=== PATIENT | male | born 1960 | race Caucasian/White ===

== ENCOUNTER 2017-07-17 11:18 | Day surgery (SDC) | payer BC ==
[2017-07-14 14:22] VITALS: BMI 34.2
--- NOTE | 2017-07-17 09:23 | HP ---
History & Physical Update - History History: No Change - Physical Physical: No Change - Assessment Assessment: No Change - Plan Plan: No Change
[~2017-07-17 11:18] MED LIST: CEFAZOLIN 2 GM in DEXTROSE 5%-WATER - 100 ML IVPB ONE; oxyCODONE HCL 10 MG SUSTAINED ACTING TABLET PO STA
[2017-07-17] MEDS ORDERED: oxyCODONE HCL 10 MG SUSTAINED ACTING TABLET ONE (11:57)
[2017-07-17] MEDS ORDERED: LIDOCAINE 1%/EPI 1:100000 (20 ML MULTI DOSE VIAL) ONE (15:57)
[2017-07-17] MEDS ORDERED: BUPIVACAINE HCL/PF 2.5 MG/ML - 30 ML VIAL IJ ONE (15:57)
[2017-07-17] MEDS ORDERED: methylPREDNISolone ACET (DEPO) 40 MG/1 ML VIAL ONE (15:57)
[2017-07-17] MEDS ORDERED: THROMBIN (BOVINE) 5,000 UNIT VIAL TP ONE (15:57)
[2017-07-17] MEDS ORDERED: BUPIVACAINE HCL/PF 0.5% (5MG/ML) 10 ML VIAL ONE (16:33)
[2017-07-17] MEDS ORDERED: MIDAZOLAM HCL 2 MG/2 ML SINGLE DOSE VIAL ONE ×3 (16:35)
[2017-07-17] MEDS ORDERED: DEXAMETHASONE SOD PHOSPHATE 4 MG/1 ML VIAL ONE (16:55)
[2017-07-17] MEDS ORDERED: ONDANSETRON 4 MG/2 ML VIAL ONE (16:55)
[2017-07-17] MEDS ORDERED: ceFAZolin SODIUM 1 GM VIAL ONE (16:55)
[2017-07-17] MEDS ORDERED: ePHEDrine SULFATE 50 MG/1 ML AMPULE ONE (17:09)
--- NOTE | 2017-07-17 18:32 | OP ---
Operative Note - Note: Operative Date: 07/17/17 Pre-Operative Diagnosis: spinal stenosis Operation: L2-L3 laminectomy Surgeon: Chance Rutherford Feed Preparation Operator: Suzan Ceballos Anesthesiologist/HIGH SCHOOL BUSINESS TEACHER: Zbigniew Gregory Anesthesia: Spinal Estimated Blood Loss (mls): 30 Fluid Volume Replaced (mls): 400 Operative Report Dictated: Yes
--- NOTE | 2017-07-17 18:33 | SURG ---
Surgery Scorekeeper Note Scorekeeper: Suzan Ceballos PA-C Date of Service: 07/17/17 Diagnosis: spinal stenosis Procedure: L2-L3 laminectomy I was present for the entirety of the operative procedure. For further detail, please refer to operative report. Visit type - Case Type Case Type: Scheduled Admission - New patient This patient is new to me today: Yes Date on this admission: 07/17/17 - Critical Care Critical Care patient: No
[2017-07-17] MEDS ORDERED: oxyCODONE HCL 5 MG TABLET PO PRN (18:38)
[2017-07-17] MEDS ORDERED: PROMETHAZINE HCL 25 MG/1 ML VIAL IVPUSH PRN (18:38)
[2017-07-17] MEDS ORDERED: ONDANSETRON 4 MG/2 ML VIAL IVPUSH PRN (18:38)
[2017-07-17 19:45] VITALS: TEMP 98.1
[2017-07-17 21:41] VITALS: BP 133/86; PULSE 82
--- NOTE | 2017-07-18 08:22 | OP ---
DATE OF OPERATION: 07/17/2017 PREOPERATIVE DIAGNOSIS: Spinal stenosis L2-3, L3-4. POSTOPERATIVE DIAGNOSIS: Spinal stenosis L2-3, L3-4. PROCEDURE PERFORMED: Laminectomy L2-3, revision laminectomy L3-4. SURGEON: Chance Rutherford MD TOURIST ADVISER: JASON Caceres ESTIMATED BLOOD LOSS: 50 mL. INTRAVENOUS FLUIDS: Per Anesthesia. ANESTHESIA: Spinal. COMPLICATIONS: None. DISPOSITION: Patient brought to PACU in stable condition. INDICATION FOR SURGERY: The patient is a 56-year-old gentleman who has been suffering from pain from his back down his leg. X-rays and MRI were completed which noted that he had spinal stenosis at L2-3 and L3-4. He had gone through an exhaustive course of treatment for this which included medications, physical therapy, as well as injections. Unfortunately, his pain continued to persist despite all this. At this point risks, benefits, and alternatives were discussed, and the patient consented to surgery. OPERATIVE NOTE: The patient was brought to the operating room by the anesthesia staff. After appropriate patient identification was performed, spinal anesthesia was given. Patient was placed prone onto the OR table with all areas of bony prominences well padded. At this time 2 needles were placed in his back to sayra off the L2 and L5 segments. X-ray was taken to confirm this was correct. Needle was removed and 10 mL of lidocaine with epinephrine was injected in his back. At this time his back was prepped and draped in sterile manner. At this point a timeout was completed. An incision was made from L2 down to L4. Dissection was carried down to the fascia. The fascia was split at this time. A spinal needle was placed onto the L2 lamina to sayra off the L2-3 level. An x-ray was taken to confirm this was correct. Needle was removed. At this time the microscope was brought in. At this point a portion of the L2 spinous process was removed. Portion of the previous scar tissue was removed. A decompression was performed at the L2-3 level. Scar tissue was noted. Scar tissue was peeled, and a decompression was performed at L3-4. By the end of the procedure the nerve roots on the right-hand side appeared to be well decompressed. All bleeding was well controlled at this time. Steroid was placed over the nerve root. FloSeal was placed over that. The fascia was closed with No. 1 Vicryl suture. Subcutaneous tissue was closed with 2-0 Vicryl sutures. Skin was closed with 3-0 Monocryl sutures. Dermabond was applied, Steri-Strips were applied, a sterile dressing was applied. Patient was placed supine on the OR bed and brought to the PACU in stable condition. Linda [id number]
== END 2017-07-17 21:45 | disposition home or self-care (01) ==
LOC: FASU 11:18
PROVIDERS: ATTEND Orthopaedic Surgery Orthopaedic Surgery of the Spine
PROC: 01NB0ZZ Release Lumbar Nerve, Open Approach (ICD-10-PCS; principal; 2017-07-17 17:13)
DX: M48.06 Spinal stenosis, lumbar region (principal)
CPT/HCPCS: 72100-TC; 76000-TC; 94760

== ENCOUNTER 2017-07-27 11:39 | Inpatient (IN) | payer BC ==
[2017-07-27] MEDS: SODIUM CHLORIDE 1,000 ML IV SCH (12:19)
[2017-07-27 12:35] LABS: BASOPHIL 1.2 % (0-2.0); EOSINOPHIL 1.9 % (0-4.5); MCH 29.3 pg (25.7-33.7); MCHC 33.9 g/dl (32.0-35.9); MEAN CELL VOLUME 86.5 fl (80-96); NEUTROPHILS 57.6 % (42.8-82.8); PLATELET COUNT 393 K/MM3 (134-434); RDW 13.3 % (11.9-15.9)
[2017-07-27 12:49] LABS: ACTIVATED PTT 30.7 SECONDS (24.0-38.9)
[2017-07-27 12:51] LABS: ALBUMIN 4.1 g/dl (3.5-5.0); ALK PHOS 57 U/L (32-92); ANION GAP 7 (8-16); BILIRUBIN,TOTAL 0.4 mg/dl (0.2-1.0); CALCIUM 9.4 mg/dl (8.4-10.2); CO2 23 mmol/L (22-28); CREATININE 0.6 mg/dl (0.6-1.3); GLUCOSE,RANDOM 95 mg/dl (74-106); SGOT/AST 19 U/L (10-42); SGPT/ALT 26 U/L (10-40); TOT PROT 6.9 g/dl (6.4-8.3)
[2017-07-27 12:54] LABS: INR 1.01 (0.82-1.09); PROTHROMBIN TIME (PATIENT) 11.3 SEC (10.2-13.0)
--- NOTE | 2017-07-27 13:10 | PDOC ---
History of Present Illness <Riaz Monteroian - Last Filed: 07/27/17 16:08> - General History Source: Patient Exam Limitations: No Limitations - History of Present Illness Initial Comments: 07/27/17 13:19 56 y/o male c/ hx of L2-L4 spinal stenosis s/p L2-L3 laminentomy 07/17 p/w draining from surgical site on back for ~1 week. Noted a purulent discharge from the back. Denies pain or fevers. Denies numbness, weakness, tingling. Was persistently draining, so came into the ED. <Patrick Ordaz - Last Filed: 07/27/17 17:26> - General Chief Complaint: Revisit,Wound Recheck Stated Complaint: drainage from operative site at back Time Seen by Provider: 07/27/17 11:44 Past History <Riaz Monteroian - Last Filed: 07/27/17 16:08> - Past Medical History Anemia: No Asthma: No Cancer: No Cardiac Disorders: No CVA: No COPD: No CHF: No Dementia: No Diabetes: No GI Disorders: No Disorders: No HTN: No Hypercholesterolemia: No Liver Disease: No Seizures: No Thyroid Disease: No - Surgical History Abdominal Surgery: No Appendectomy: No Cardiac Surgery: No Cholecystectomy: No Lung Surgery: No Neurologic Surgery: No Orthopedic Surgery: Yes (LAMINECTOMY- 2010) - Suicide/Smoking/Psychosocial Hx Smoking History: Current every day smoker Have you smoked in the past 12 months: Yes Number of Cigarettes Smoked Daily: 10 Information on smoking cessation initiated: Yes 'Breaking Loose' booklet given: 07/27/17 Hx Alcohol Use: No Drug/Substance Use Hx: No Substance Use Type: None Hx Substance Use Treatment: No <Patrick Ordaz - Last Filed: 07/27/17 17:26> - Past Medical History Allergies/Adverse Reactions: Allergies Allergy/AdvReac Type Severity Reaction Status Date / Time No Known Allergies Allergy Verified 07/27/17 11:41 Home Medications: Ambulatory Orders NK [No Known Home Medication] 07/27/17 Review of Systems - Review of Systems Able to Perform ROS?: Yes Comments:: 07/27/17 13:20 GENERAL/CONSTITUTIONAL: No fever, weakness. HEAD, EYES, EARS, NOSE AND THROAT: No change in vision. No ear pain or discharge. No sore throat. CARDIOVASCULAR: No chest pain or shortness of breath. RESPIRATORY: No cough, wheezing, or hemoptysis. GASTROINTESTINAL: No abdominal pain, nausea, vomiting, diarrhea, or decreased PO intolerance. GENITOURINARY: No dysuria, frequency, or change in urination. MUSCULOSKELETAL: No joint or muscle swelling or pain. No neck or back pain. SKIN: Drainage from the surgical site on back NEUROLOGIC: No headache, vertigo, loss of consciousness, or change in strength/ sensation. ENDOCRINE: No increased thirst. No abnormal weight change. HEMATOLOGIC/LYMPHATIC: No anemia, easy bleeding, or history of blood clots. ALLERGIC/IMMUNOLOGIC: No hives or skin allergy. <Patrick Ordaz - Last Filed: 07/27/17 17:26> *Physical Exam - Vital Signs Last Vital Signs Temp Pulse Resp BP Pulse Ox 99 F 58 L 16 139/98 95 07/27/17 11:40 07/27/17 11:40 07/27/17 11:40 07/27/17 12:19 07/27/17 11:40 <Seamus Montero - Last Filed: 07/27/17 16:08> - Vital Signs Last Vital Signs Temp Pulse Resp BP Pulse Ox 99 F 58 L 16 139/98 95 07/27/17 11:40 07/27/17 11:40 07/27/17 11:40 07/27/17 12:19 07/27/17 11:40 - Physical Exam Comments: 07/27/17 13:24 GENERAL: Awake, alert, and fully oriented, in no acute distress. HEAD: No signs of trauma EYES: PERRLA, EOMI, sclera anicteric, conjunctiva clear ENT: Auricles normal inspection, hearing grossly normal, nares patent, oropharynx clear without exudates. NECK: Normal ROM, supple, no lymphadenopathy, JVD, or masses LUNGS: Breath sounds equal, clear to auscultation bilaterally. No wheezes, and no crackles HEART: Regular rate and rhythm, normal S1 and S2, no murmurs, rubs or gallops ABDOMEN: Soft, nontender, normoactive bowel sounds. No guarding, no rebound. No masses EXTREMITIES: Normal range of motion, no edema. No clubbing or cyanosis. No cords, erythema, or tenderness NEUROLOGICAL: Cranial nerves II through XII grossly intact. Normal speech, normal gait SKIN: Surgical scar overlying the L2-L4 site with purulent drainage. No erythema appreciated. <Patrick Ordaz - Last Filed: 07/27/17 17:26> Heart Score/ECG Review #1 ECG reviewed & interpreted by me at: 12:15 07/27/17 13:24 NSR 67, no std/tomas, normal axis, normal intervals, QTC 401 msec <Patrick Ordaz - Last Filed: 07/27/17 17:26> ED Treatment Course - LABORATORY CBC & Chemistry Diagram: 07/27/17 12:00 07/27/17 12:00 - ADDITIONAL ORDERS Additional order review: Laboratory Results 07/27/17 07/27/17 07/27/17 12:00 12:00 12:00 PT with INR 11.3 INR 1.01 PTT (Actin FS) 30.7 Sodium 135 L Potassium 4.0 Chloride 105 Carbon Dioxide 23 Anion Gap 7 L BUN 13 Creatinine 0.6 Creat Clearance w eGFR > 60 Random Glucose 95 Lactic Acid 1.8 Calcium 9.4 Total Bilirubin 0.4 AST 19 ALT 26 Alkaline Phosphatase 57 Total Protein 6.9 Albumin 4.1 Urine Color Urine Appearance Urine pH Ur Specific [place] Urine Protein Urine Glucose (UA) Urine Ketones Urine Blood Urine Nitrite Urine Bilirubin Urine Urobilinogen Urine RBC Urine WBC Ur Epithelial Cells Urine Bacteria 07/27/17 01:20 PT with INR INR PTT (Actin FS) Sodium Potassium Chloride Carbon Dioxide Anion Gap BUN Creatinine Creat Clearance w eGFR Random Glucose Lactic Acid Calcium Total Bilirubin AST ALT Alkaline Phosphatase Total Protein Albumin Urine Color Yellow Urine Appearance Cloudy Urine pH 7.0 Ur Specific [place] 1.015 Urine Protein Negative Urine Glucose (UA) Negative Urine Ketones Negative Urine Blood Trace-intact H Urine Nitrite Negative Urine Bilirubin Negative Urine Urobilinogen 0.2 Urine RBC 0-3 Urine WBC 0-3 Ur Epithelial Cells Moderate Urine Bacteria Few 07/27/17 12:00 Gram Stain - Final Back 07/27/17 12:00 RBC 5.14 MCV 86.5 MCHC 33.9 RDW 13.3 MPV 8.0 Neutrophils % 57.6 Lymphocytes % 33.1 Monocytes % 6.2 Eosinophils % 1.9 Basophils % 1.2 <Seamus Montero - Last Filed: 07/27/17 16:08> - LABORATORY CBC & Chemistry Diagram: 07/27/17 12:00 07/27/17 12:00 - ADDITIONAL ORDERS Additional order review: Laboratory Results 07/27/17 07/27/17 12:00 12:00 PT with INR 11.3 INR 1.01 PTT (Actin FS) 30.7 Sodium 135 L Potassium 4.0 Chloride 105 Carbon Dioxide 23 Anion Gap 7 L BUN 13 Creatinine 0.6 Creat Clearance w eGFR > 60 Random Glucose 95 Calcium 9.4 Total Bilirubin 0.4 AST 19 ALT 26 Alkaline Phosphatase 57 Total Protein 6.9 Albumin 4.1 07/27/17 12:00 RBC 5.14 MCV 86.5 MCHC 33.9 RDW 13.3 MPV 8.0 Neutrophils % 57.6 Lymphocytes % 33.1 Monocytes % 6.2 Eosinophils % 1.9 Basophils % 1.2 - RADIOLOGY Radiology Studies Ordered: Category Date Time Status LUMBAR SPINE CT WITH CONTRAST [CT] Stat CT Scan 07/27/17 11:52 Ordered <Patrick Ordaz - Last Filed: 07/27/17 17:26> Medical Decision Making - Medical Decision Making 07/27/17 15:[address] Rutherford at 3:17 pm. 07/27/17 3:31 pm Page returned by PA on behalf of Dr. Rutherford at 3:31 pm. <Seamus Montero - Last Filed: 07/27/17 16:08> - Medical Decision Making 07/27/17 13:25 Vital Signs Temp Pulse Resp BP Pulse Ox 99 F 58 L 16 139/98 95 07/27/17 11:40 07/27/17 11:40 07/27/17 11:40 07/27/17 12:19 07/27/17 11:40 Findings are concerning for infected surgical site. Adult sepsis protocol initiated. CT lumbar spine with IV contrast to evaluate for abscess. IV antibiotics. 07/27/17 17:25 CBC, BMP 07/27/17 12:00 07/27/17 12:00 CMP Sodium 135 mmol/L (136-145) L 07/27/17 12:00 Potassium 4.0 mmol/L (3.5-5.1) 07/27/17 12:00 Chloride 105 mmol/L (98-107) 07/27/17 12:00 Carbon Dioxide 23 mmol/L (22-28) 07/27/17 12:00 Anion Gap 7 (8-16) L 07/27/17 12:00 BUN 13 mg/dl (7-18) 07/27/17 12:00 Creatinine 0.6 mg/dl (0.6-1.3) 07/27/17 12:00 Creat Clearance w eGFR > 60 (>60) 07/27/17 12:00 Random Glucose 95 mg/dl (74-106) 07/27/17 12:00 Lactic Acid 1.8 mmol/L (0.4-2.0) 07/27/17 12:00 Calcium 9.4 mg/dl (8.4-10.2) 07/27/17 12:00 Total Bilirubin 0.4 mg/dl (0.2-1.0) 07/27/17 12:00 AST 19 U/L (10-42) 07/27/17 12:00 ALT 26 U/L (10-40) 07/27/17 12:00 Alkaline Phosphatase 57 U/L (32-92) 07/27/17 12:00 Total Protein 6.9 g/dl (6.4-8.3) 07/27/17 12:00 Albumin 4.1 g/dl (3.5-5.0) 07/27/17 12:00 Urine Test Results Urine Color Yellow 07/27/17 01:20 Urine Appearance Cloudy 07/27/17 01:20 Urine pH 7.0 (4.5-8) 07/27/17 01:20 Ur Specific [place] 1.015 (1.005-1.025) 07/27/17 01:20 Urine Protein Negative (NEGATIVE) 07/27/17 01:20 Urine Glucose (UA) Negative (NEGATIVE) 07/27/17 01:20 Urine Ketones Negative (NEGATIVE) 07/27/17 01:20 Urine Blood Trace-intact (NEGATIVE) H 07/27/17 01:20 Urine Nitrite Negative (NEGATIVE) 07/27/17 01:20 Urine Bilirubin Negative (NEGATIVE) 07/27/17 01:20 Urine RBC 0-3 /hpf (0-3) 07/27/17 01:20 Urine WBC 0-3 (3-5) 07/27/17 01:20 Ur Epithelial Cells Moderate /HPF 07/27/17 01:20 Urine Bacteria Few /hpf (NEGATIVE) 07/27/17 01:20 CT spine reviewed. No abscess but findings consistent with skin infection. Vanc and ceftriaxone ordered. Case discussed with JASON Lora from DR. Rutherford's service. She agrees with plan and requests [facility] service. Case discussed with [facility] hospitalist. Case admitted under med/surg admission. Case discussed in detail with admitting physician including history, physical exam and ancillary studies. Admitting physician has assumed care for the patient, will follow all pending diagnostics and will complete the evaluation and treatment. <Patrick Ordaz - Last Filed: 07/27/17 17:26> *DC/Admit/Observation/Transfer - Attestations Scribe Attestion: 07/27/17 15:17 Documentation prepared by Seamus Montero, acting as biomedical engineering aide for Patrick Ordaz MD. <Seamus Montero - Last Filed: 07/27/17 16:08> - Discharge Dispostion Admit: Yes <Patrick Ordaz - Last Filed: 07/27/17 17:26> Diagnosis at time of Disposition: Postoperative infection Qualifiers: Encounter type: initial encounter Qualified Code(s): T81.4XXA - Infection following a procedure, initial encounter - Discharge Dispostion Condition at time of disposition: Fair - Referrals - Patient Instructions Printed Discharge Instructions: Smoking Cessation - Post Discharge Activity
[2017-07-27 13:37] LABS: URINE BILIRUBIN Negative (NEGATIVE); URINE GLUCOSE (UA) Negative (NEGATIVE); URINE KETONE Negative (NEGATIVE); URINE LEUK ESTERASE Negative (NEGATIVE); URINE NITRITE Negative (NEGATIVE); URINE PROTEIN Negative (NEGATIVE); URINE UROBILINOGEN 0.2 (0.2-1.0)
[2017-07-27 13:38] LABS: URINE APPEARANCE CLOUDY; URINE BLOOD Trace-intact (NEGATIVE); URINE COLOR YELLOW
[2017-07-27 13:46] LABS: URINE RBC 0-3 /hpf (0-3); URINE WBC 0-3 (3-5)
[2017-07-27 13:47] LABS: URINE BACTERIA FEW /hpf (NEGATIVE)
[2017-07-27] MEDS ORDERED: CEFTRIAXONE 1 GM in DEXTROSE 5%-WATER - 50 ML IVPB ONE (15:07)
[2017-07-27] MEDS ORDERED: cefTRIAXone SODIUM 1 GM VIAL ONE (15:11)
[2017-07-27] MEDS ORDERED: VANCOMYCIN 1,000 MG VIAL (RESTRICTED TO ID ONLY) ONE (16:44)
[2017-07-27] MEDS ORDERED: VANCOMYCIN 1,000 MG in DEXTROSE 5%-WATER - 250 ML IVPB ONE (16:44)
[2017-07-27] MEDS ORDERED: morphine CARPU-JECT 4 MG/1 ML DISP.SYRIN IVPUSH PRN (17:28)
[2017-07-27] MEDS ORDERED: HEPARIN NA (PORCINE) 5,000 UNITS/ML 1ML VIAL SQ SCH (18:00)
[2017-07-27 18:38] VITALS: BMI 35.1
--- NOTE | 2017-07-27 19:10 | HP ---
CHIEF COMPLAINT: Drainage from surgical site PCP: Dr. Chacon ([facility]) HISTORY OF PRESENT ILLNESS: This is a 56 year old male with a history of severe spinal stenosis who underwent L2-[address] Rutherford in this facility on 07/17. He has been noticing drainage at the surgical site several days later, and followed up in the office at that time. Since then, the drainage has worsened. He describes it as yellow and constant. He and presented to the ED for evaluation today. He denies fevers/chills, lower extremity weakness, numbness or tingling, or any other symptoms. ER course was notable for: (1) WBC 10.0, afebrile (2) CT spine: no evidence of drainable collection. Severe spinal stenosis with possible compression of T11 nerve root. (3) Gram stain: No organisms seen Recent Travel: Traveled to [facility] just prior to surgery PAST MEDICAL HISTORY: None PAST SURGICAL HISTORY: L2-3 laminectomy 07/17/17, laminectomy 2009 Social History: Lives with , works as building construction contractor Smokin cigarettes daily Alcohol: Occasional Drugs: None Family History: Non-contributory to this admission Allergies No Known Allergies Allergy (Verified 07/27/17 11:41) HOME MEDICATIONS: Home Medications Medication Instructions Recorded NK [No Known Home Medication] 07/27/17 REVIEW OF SYSTEMS CONSTITUTIONAL: Absent: fever, chills, diaphoresis, generalized weakness, malaise, loss of appetite, weight change HEENT: Absent: rhinorrhea, nasal congestion, throat pain, throat swelling, difficulty swallowing, mouth swelling, ear pain, eye pain, visual changes CARDIOVASCULAR: Absent: chest pain, syncope, palpitations, irregular heart rate, lightheadedness , peripheral edema RESPIRATORY: Absent: cough, shortness of breath, dyspnea with exertion, orthopnea, wheezing, stridor, hemoptysis GASTROINTESTINAL: Absent: abdominal pain, abdominal distension, nausea, vomiting, diarrhea, constipation, melena, hematochezia GENITOURINARY: Absent: dysuria, frequency, urgency, hesitancy, hematuria, flank pain, genital pain MUSCULOSKELETAL: Absent: myalgia, arthralgia, joint swelling, back pain, neck pain SKIN: Drainage from surgical site HEMATOLOGIC/IMMUNOLOGIC: Absent: easy bleeding, easy bruising, lymphadenopathy, frequent infections ENDOCRINE: Absent: unexplained weight gain, unexplained weight loss, heat intolerance, cold intolerance NEUROLOGIC: Absent: headache, focal weakness or paresthesias, dizziness, unsteady gait, seizure, mental status changes, bladder or bowel incontinence PSYCHIATRIC: Absent: anxiety, depression, suicidal or homicidal ideation, hallucinations. PHYSICAL EXAMINATION Vital Signs - 24 hr 07/27/17 07/27/17 17:49 18:19 Temperature 98.6 F 98.2 F Pulse Rate 63 Pulse Rate [ 71 Left Radial] Respiratory 18 18 Rate Blood Pressure 148/77 Blood Pressure 145/88 [Right Arm] O2 Sat by Pulse 98 98 Oximetry (%) GENERAL: Awake, alert, and fully oriented, in no acute distress. HEAD: Normal with no signs of trauma. EYES: Pupils equal, round and reactive to light, extraocular movements intact, sclera anicteric, conjunctiva clear. No lid lag. EARS, NOSE, THROAT: Ears normal, nares patent, oropharynx clear without exudates. Moist mucous membranes. NECK: Normal range of motion, supple without lymphadenopathy, JVD, or masses. LUNGS: Breath sounds equal, clear to auscultation bilaterally. No wheezes, and no crackles. No accessory muscle use. HEART: Regular rate and rhythm, normal S1 and S2 without murmur, rub or gallop. ABDOMEN: Soft, nontender, not distended, normoactive bowel sounds, no guarding, no rebound, no masses. No hepatomegaly or splenomegaly. MUSCULOSKELETAL: Normal range of motion at all joints. No bony deformities or tenderness. No CVA tenderness. UPPER EXTREMITIES: 2+ pulses, warm, well-perfused. No cyanosis. No clubbing. No peripheral edema. LOWER EXTREMITIES: 2+ pulses, warm, well-perfused. No calf tenderness. No peripheral edema. NEUROLOGICAL: Cranial nerves II-XII intact. Normal speech. Normal gait. 5/5 upper and lower extremity strength bilaterally. No saddle anesthesia. PSYCHIATRIC: Cooperative. Good eye contact. Appropriate mood and affect. SKIN: Warm, dry, normal turgor, no rashes or lesions noted, normal capillary refill. Lumbar surgical incision with no drainage on gauze (however dressing was changed recently prior to my evaluation). Mild warmth. No erythema. ASSESSMENT/PLAN: 56 year old male admitted with possible surgical site infection. Problem List - Problem (1) Post-operative infection Assessment/Plan: -Given Ceftriaxone/Vancomycin in ED -Continue weight-based Vancomycin, start Zosyn tomorrow pending ID recommendations -Follow WBC -Follow up blood and wound cultures -Neurosurgical and ID consultations requested Code(s): T81.4XXA - INFECTION FOLLOWING A PROCEDURE, INITIAL ENCOUNTER Qualifiers: Encounter type: initial encounter Qualified Code(s): T81.4XXA - Infection following a procedure, initial encounter (2) Cigarette smoker Assessment/Plan: -Declines NRT Code(s): F17.210 - NICOTINE DEPENDENCE, CIGARETTES, UNCOMPLICATED (3) DVT prophylaxis Assessment/Plan: -Ambulation -SCDs -No chemical ppx pending surgical plan Code(s): [id number] - Visit type - Emergency Visit Emergency Visit: Yes ED Registration Date: 07/27/17 Care time: The patient presented to the Emergency Department on the above date and was hospitalized for further evaluation of their emergent condition. - New Patient This patient is new to me today: Yes Date on this admission: 07/27/17 - Critical Care Critical Care patient: No
[2017-07-27] MEDS ORDERED: VANCOMYCIN 1,000 MG in DEXTROSE 5%-WATER - 250 ML IVPB SCH (22:00)
[2017-07-28] MEDS ORDERED: PIPERACILLIN/TAZOB 4.5 GM/100 ML PRE-DOCKED IVPB ONE (08:00)
[2017-07-28 08:25] LABS: INR 1.06 (0.82-1.09); PROTHROMBIN TIME (PATIENT) 11.9 SEC (10.2-13.0)
[2017-07-28 08:40] LABS: BASOPHIL 0.1 % (0-2.0); EOSINOPHIL 2.9 % (0-4.5); MCH 28.6 pg (25.7-33.7); MCHC 32.2 g/dl (32.0-35.9); MEAN CELL VOLUME 88.8 fl (80-96); MEAN PLT VOLUME 8.4 fl (7.5-11.1); NEUTROPHILS 59.2 % (42.8-82.8); PLATELET COUNT 376 K/MM3 (134-434); RDW 13.3 % (11.9-15.9); WHITE BLOOD COUNT 9.6 K/mm3 (4.0-10.8)
--- NOTE | 2017-07-28 09:04 | PN ---
Progress Note (short form) - Note Progress Note: ID Consult dictated Possible surgical site infection v. seroma S/P L2L3 laminectomy Await c/s Obtain ESR, CRP Empiric vancomycin/ zosyn
[2017-07-28 09:07] LABS: ALK PHOS 63 U/L (32-92); ANION GAP 8 (8-16); BILIRUBIN,TOTAL 0.9 mg/dl (0.2-1.0); CALCIUM 9.7 mg/dl (8.4-10.2); CO2 26 mmol/L (22-28); CREATININE 0.6 mg/dl (0.6-1.3); GLUCOSE,RANDOM 96 mg/dl (74-106); PHOSPHOROUS 3.5 mg/dl (2.5-4.6); SGOT/AST 17 U/L (10-42); SGPT/ALT 26 U/L (10-40)
--- NOTE | 2017-07-28 09:27 | PN ---
Physical Exam: SUBJECTIVE: Patient seen and examined this morning. Pt with wound to laminectomy sight. No events overnight and denies fever or chills. OBJECTIVE: Vital Signs Period Temp Pulse Resp BP Sys/Velazquez Pulse Ox Last 24 Hr 98.1 F-98.6 F 57-71 18-20 116-148/68-88 98-98 GENERAL: The patient is awake, alert, and fully oriented, in no acute distress. HEAD: Normal with no signs of trauma. EYES: PERRL, extraocular movements intact, sclera anicteric, conjunctiva clear. No ptosis. LUNGS: Breath sounds equal, clear to auscultation bilaterally, no wheezes, no crackles, no accessory muscle use. HEART: Regular rate and rhythm, S1, S2 without murmur, rub or gallop. ABDOMEN: Soft, nontender, nondistended, normoactive bowel sounds, no guarding, no rebound, no hepatosplenomegaly, no masses. EXTREMITIES: 2+ pulses, warm, well-perfused, no edema. NEUROLOGICAL: Cranial nerves II through XII grossly intact. Normal speech, gait not observed. PSYCH: Normal mood, normal affect. SKIN: Warm, dry, normal turgor, no rashes or lesions noted. Lumbar region with 2" wound with serous drainage noted. Wound edges approximated and no signs of erythema, pus, or bleeding. Denies any pain. Laboratory Results - last 24 hr 07/28/17 07/28/17 07/28/17 07:33 07:33 07:33 WBC 9.6 RBC 5.01 Hgb 14.3 Hct 44.4 MCV 88.8 MCH 28.6 MCHC 32.2 RDW 13.3 Plt Count 376 MPV 8.4 Neutrophils % 59.2 Lymphocytes % 32.1 Monocytes % 5.7 Eosinophils % 2.9 Basophils % 0.1 PT with INR 11.9 INR 1.06 PTT (Actin FS) 31.0 Sodium 138 Potassium 4.5 Chloride 104 Carbon Dioxide 26 Anion Gap 8 BUN 10 D Creatinine 0.6 Creat Clearance w eGFR > 60 Random Glucose 96 Calcium 9.7 Phosphorus 3.5 Magnesium 2.0 Total Bilirubin 0.9 D AST 17 ALT 26 Alkaline Phosphatase 63 Total Protein 7.0 Albumin 4.0 Active Medications Generic Name Dose Route Start Last Admin Trade Name Freq PRN Reason Stop Dose Admin Sodium Chloride 1,000 mls @ 125 mls/hr 07/27/17 12:00 07/27/17 12:19 Normal Saline - IV 125 mls/hr ASDIR SARAH Administration Vancomycin HCl 250 mls @ 166.667 mls/hr 07/28/17 11:00 Vancomycin (Pre-Docked) IVPB Q12H SARAH Piperacillin Sod/Tazobactam Sod 100 mls @ 200 mls/hr 07/28/17 10:00 Zosyn 4.5gm Ivpb (Pre-Docked) IVPB Q8H-IV SARAH Protocol Morphine Sulfate 4 mg 07/27/17 17:28 Morphine Injection - IVPUSH Q6H PRN PAIN ASSESSMENT/PLAN: This 56 year old male with recent laminectomy on 07/17 who developed serous drainage from his wound site yesterday. He presented to ER and was started on vanco and zosyn. Problem List - Problems (1) Cigarette smoker Assessment/Plan: -cessation of smoking education Code(s): F17.210 - NICOTINE DEPENDENCE, CIGARETTES, UNCOMPLICATED (2) Post-operative infection Assessment/Plan: - Keep the wound clean and dry with daily dressing changes - as per ID switch to keflex for 5 days - will discharge home with follow up with surgeon - added on ESR and CRP for follow up of ID. Code(s): T81.4XXA - INFECTION FOLLOWING A PROCEDURE, INITIAL ENCOUNTER Qualifiers: Encounter type: initial encounter Qualified Code(s): T81.4XXA - Infection following a procedure, initial encounter Visit type - Emergency Visit Emergency Visit: Yes ED Registration Date: 07/27/17 Care time: The patient presented to the Emergency Department on the above date and was hospitalized for further evaluation of their emergent condition. - New Patient This patient is new to me today: Yes Date on this admission: 07/28/17 - Critical Care Critical Care patient: No - Discharge Referral Referred to [facility] No
[2017-07-28] MEDS ORDERED: VANCOMYCIN 1,500 MG in DEXTROSE 5%-WATER - 250 ML IVPB ONE (10:00)
[2017-07-28] MEDS ORDERED: PIPERACILLIN/TAZOB 4.5 GM 100 ML IVPB SCH (10:00)
--- NOTE | 2017-07-28 10:27 | CONS ---
DATE OF CONSULTATION: HISTORY: The patient is a 56-year-old male evaluated for possible surgical site infection. He has a history of spinal stenosis L2, L4. The patient underwent an L2-L3 laminectomy on July 17, 2017. He reports that approximately 2-3 days postoperatively he developed drainage at the surgical site. It was initially described as bloody/serosanguineous and later became serous and yellow in color. It became more copious. He had presented to an urgent care center where he was evaluated. He was seen in follow up by Surgery. He was treated supportively. The patient continued to report drainage from the wound. He presented to the emergency room yesterday and was admitted to the hospital. Cultures were obtained, and he was empirically treated with vancomycin and Zosyn. He denies any pain at the surgical site. He reports that pain and weakness of his lower extremities has improved since the surgery. He denies any fever or chills. A CAT scan of the surgical site was obtained and shows postsurgical changes related to the recent laminectomy at L2-L3 with a confluent soft tissue/fluid in the posterior paraspinal soft tissues from L1-L4 extending into the epidural space and up to the skin surface. No CT evidence of a drainable collection was noted. PAST MEDICAL HISTORY: Negative. ALLERGIES: No known allergies. MEDICATIONS: No home medications. SOCIAL HISTORY: Works as a building serviceman. Positive history of tobacco. Occasional ETOH. Recent travel to [facility]. SYSTEMS REVIEW: Neurologic: No loss of consciousness, seizure activity, focal weakness. Cardiac: Negative chest pain or palpitations. Respiratory: Negative cough or sputum production. Gastrointestinal: Negative vomiting or diarrhea. Genitourinary: Negative for urinary tract infection. LABORATORY DATA: White count 10, neutrophils 57, lymphocytes 33, monocytes 6, hematocrit 44.5, platelet count 393, BUN 13, creatinine 0.6. Liver enzymes normal. Urinalysis 0-3 white cells. Blood and wound cultures are pending. Wound culture Gram stain shows no polys, no organisms. PHYSICAL EXAMINATION: General: He is awake and alert. He is seated in bed in no acute distress. Vital Signs: Temperature 98.1, blood pressure 116/68, pulse 57 and regular, respirations 20 per minute. HEENT: Sclerae anicteric. Heart: Sounds S1, S2 with a 2/6 pansystolic murmur. Lungs: Clear. Abdomen: Soft. No tenderness elicited. No mass, rebound, or rigidity. Extremities: Negative for edema. Negative for Homans sign. Skin: Examination of the surgical wound, there is a laminectomy wound present in the lumbar area. It appears to be healing well. Sutures intact. There is no erythema, no expressible pus or drainage. IMPRESSION: 1. Possible surgical site infection versus seroma. 2. Status post L2-L3 laminectomy. 3. History of spinal stenosis. PLAN: Await blood and wound culture results. Obtain sedimentation rate, C-reactive protein. Empiric antibiotic coverage with vancomycin 1 g IV piggyback every 12 hours. Zosyn 4.5 g IV piggyback every 8 hours. Neurosurgical follow up. We will follow. Thank you for the kind referral. ANISH AMBROCIO M.D. [id number]
[2017-07-28] MEDS ORDERED: VANCOMYCIN 1 GRAM (PRE-DOCKED) 250 ML IVPB SCH (11:00)
[2017-07-28] MEDS ORDERED: FLU VACCINE QUAD 60 MCG/0.5 ML (MDV 17-18) IM ONE (12:00)
[2017-07-28] MEDS: SODIUM CHLORIDE 1,000 ML IV SCH (12:02)
--- NOTE | 2017-07-28 12:54 | CONSULT ---
Consult - text type - Consultation Consultation Note: Patient well known to my service Patient is s/p revision Laminectomy He presented with serous drainage from the superior portion of his wound No fevers, no WBC. This morning there was slight drainage Patient will be D/C'd home with abx He will F/U with me as an outpatient
[2017-07-28 13:19] VITALS: BP 112/66; PULSE 59; TEMP 98.5
--- NOTE | 2017-07-29 20:46 | EKG ---
Test Reason : Blood Pressure : / mmHG Vent. Rate : 067 BPM Atrial Rate : 067 BPM P-R Int : 150 ms QRS Dur : 102 ms QT Int : 380 ms P-R-T Axes : 033 008 049 degrees QTc Int : 401 ms NORMAL SINUS RHYTHM NORMAL ECG NO PREVIOUS ECGS AVAILABLE REPEAT EKG IF CLINICALLY INDICATED Confirmed by DARLENE CAMPOS MD ([id number]) on 07/29/2017 8:45:52 PM Referred By: BOUBACAR PORTILLO Confirmed By:DARLENE CAMPOS MD
== END 2017-07-28 14:05 | disposition home or self-care (01) | DRG 863 ==
LOC: FER 11:39 → FM/S 17:41
PROVIDERS: ADMIT Internal Medicine; ATTEND Nurse Practitioner Family
DX: T81.4XXA Infection following a procedure, initial encounter (principal); Y83.8 Other surgical procedures as the cause of abnormal reaction of the patient, or of later complication, without mention of misadventure at the time of the procedure; F17.210 Nicotine dependence, cigarettes, uncomplicated
CPT/HCPCS: 36415; 72132-TC; 80053; 81003; 81015; 83605; 83735; 84100; 85025; 85610; 85651; 85730; 86140; 87040; 87070; 87086; 87205; 93005; 97116-GP; 97161-GP; 99284-25; J1644